=== PATIENT | female | born 1990 | race Caucasian/White ===

== ENCOUNTER → 2016-03-23 | Outpatient (REF) | payer BC | LOC: M LAB REF 16:24 | PROVIDERS: ATTEND Physician Assistant | DX: J02.9 Acute pharyngitis, unspecified (principal) ==

== ENCOUNTER → 2016-04-05 | Outpatient (REF) | payer BC ==
[2016-04-05 10:10] LABS: BASO % 0.3 % (0.0-1.0); EOS # 0.2 K/mm3 (0.0-0.50); EOS % 1.5 % (0.0-3.0); LARGE UNSTAINED CELL # 0.2 K/mm3 (0.0-0.4); LARGE UNSTAINED CELL % 1.6 % (0.0-4.0); LYMPH # 3.6 K/mm3 (1.5-6.5); MEAN CORPUSCULAR HEMOGLOBIN 30.8 pg (27.0-33.0); MEAN CORPUSCULAR HGB CONC 35.1 g/dl (32.0-36.5); MEAN CORPUSCULAR VOLUME 87.9 fl (80.0-96.0); MONO # 0.4 K/mm3 (0.0-0.8); MONO % 4.1 % (0.0-5.0); NEUTROPHILS # 5.2 K/mm3 (1.8-7.7); NEUTROPHILS % 54.4 % (36.0-66.0); PLATELET COUNT, AUTOMATED 307 k/mm3 (150-450); RED CELL DISTRIBUTION WIDTH 11.7 % (11.5-14.5); WHITE BLOOD COUNT 9.6 K/mm3 (4.0-10.0)
[2016-04-05 11:35] LABS: ALBUMIN 3.4 GM/DL (3.2-5.2); ALBUMIN/GLOBULIN RATIO 0.94 (1.00-1.93); ALKALINE PHOSPHATASE 73 U/L (45-117); ALT/SGPT 18 U/L (12-78); AMYLASE 40 U/L (25-115); ANION GAP 9 MEQ/L (8-16); AST/SGOT 14 U/L (15-37); BILIRUBIN,TOTAL 0.4 MG/DL (0.2-1.0); BLOOD UREA NITROGEN 10 MG/DL (7-18); CALCIUM LEVEL 8.7 MG/DL (8.5-10.1); CARBON DIOXIDE LEVEL 25 MEQ/L (21-32); CHLORIDE LEVEL 108 MEQ/L (98-107); CHOLESTEROL LEVEL 248 MG/DL (<200); CREATININE FOR GFR 0.83 MG/DL (0.55-1.02); GLOMERULAR FILTRATION RATE > 60.0 (>60); GLUCOSE, FASTING 80 MG/DL (70-105); POTASSIUM SERUM 4.4 MEQ/L (3.5-5.1); SODIUM LEVEL 142 MEQ/L (136-145); TRIGLYCERIDES LEVEL 166 MG/DL (<150)
== END ==
LOC: M SFHCPLAZ 07:51
PROVIDERS: ATTEND Physician Assistant
DX: R10.11 Right upper quadrant pain (principal); E78.5 Hyperlipidemia, unspecified

== ENCOUNTER → 2016-04-09 | Outpatient (CLI) | payer BC ==
--- NOTE | 2016-04-09 10:00 | REP ---
RIGHT UPPER QUADRANT ULTRASOUND: Real-time sonographic evaluation of the right upper quadrant performed. Multiple gallstones are seen in the gallbladder. There is no gallbladder wall thickening or pericholecystic fluid. There is no intrahepatic or extrahepatic biliary dilatation, common bile duct measuring 6 mm in diameter. Liver and pancreas demonstrate no gross mass. Pancreas is not optimally seen in the region of the pancreatic tail due to overlying bowel gas. Right kidney demonstrates nor hydronephrosis or nephrolithiasis with normal size at 10.4 cm in length. IMPRESSION: Multiple gallstones in the gallbladder. No gallbladder wall thickening, pericholecystic fluid or biliary dilatation. Signed by Guille Xiao MD 04/09/2016 01:12 P
== END ==
LOC: M RAD 07:45
PROVIDERS: ATTEND Physician Assistant
DX: R10.11 Right upper quadrant pain (principal)

== ENCOUNTER 2016-04-30 14:49 | Day surgery (SDC) | payer BC ==
[~2016-04-30] VITALS: Ht 167.6 cm; Wt 88.9 kg
[~2016-04-30 14:49] MED LIST: NUVAMIS2 VA
[2016-04-30] MEDS ORDERED: LR 1,000 ML IV SCH ×2 (15:30→22:30)
[2016-04-30] MEDS ORDERED: ONDANSETRON 4MG/2ML VIAL (J2405) As Ordered ONE ×2 (17:05→21:49)
[2016-04-30] MEDS ORDERED: LIDOCAINE 2% INJ 100 MG/5 ML SDV (FOR ANES.) As Ordered ONE (17:06)
[2016-04-30] MEDS ORDERED: fentaNYL 250 MCG/5 ML INJECTION (J3010) As Ordered ONE (17:06)
[2016-04-30] MEDS ORDERED: ROCURONIUM BROMIDE 50 MG/5 ML VIAL As Ordered ONE (17:06)
[2016-04-30] MEDS ORDERED: MIDAZOLAM INJ 2 MG/2 ML VIAL (J2250) As Ordered ONE (17:06)
[2016-04-30] MEDS ORDERED: dexameTHASONE 4 MG/ML 1ML VIAL (J1100) As Ordered ONE (17:06)
[2016-04-30] MEDS ORDERED: PROPOFOL 200 MG/20 ML VIAL As Ordered ONE (17:06)
[2016-04-30 17:15] LABS: CONTROL LINE UCG INT CTR LINE PRESENT
[2016-04-30] MEDS ORDERED: BUPIVACAINE/EPIN 0.25% 30 ML VIAL As Ordered ONE (20:51)
[2016-04-30] MEDS ORDERED: SUGAMMADEX SODIUM 500 MG/5 ML VIAL (BRIDION) As Ordered ONE (21:33)
[2016-04-30] MEDS ORDERED: METOCLOPRAMIDE INJ 10MG/2ML VIAL (J2765) As Ordered ONE (21:49)
[2016-04-30] MEDS ORDERED: fentaNYL 100 MCG/2 ML INJECTION (J3010) As Ordered ONE (21:55)
[2016-04-30] MEDS: HYDROmorphone HCL 1 MG/ML SYRINGE (J1170) IV PRN ×5 (21:55→22:15)
[2016-04-30] MEDS ORDERED: HYDROmorphone HCL 1 MG/ML SYRINGE (J1170) As Ordered ONE (21:55)
[2016-04-30] MEDS: fentaNYL 100 MCG/2 ML INJECTION (J3010) IV PRN ×4 (22:20→22:35)
[2016-04-30] MEDS ORDERED: PROMETHAZINE INJ 25 MG/ML VIAL (J2550) IV PRN (22:30)
[2016-04-30] MEDS ORDERED: ONDANSETRON 4MG/2ML VIAL (J2405) IV PRN (22:30)
[2016-04-30] MEDS ORDERED: diphenhydrAMINE INJ 50MG/ML VIAL (J1200) IV PRN (22:30)
[2016-04-30] MEDS ORDERED: PERCOCET 5MG/325MG TAB PO PRN (22:30)
[2016-04-30] MEDS ORDERED: METOCLOPRAMIDE INJ 10MG/2ML VIAL (J2765) IV PRN (22:30)
[2016-04-30 23:30] VITALS: BP 148/80
[2016-05-01] VITALS: BP 132/76
[2016-05-01] MEDS: NORCO, ANEXSIA 5/325MG TABLET (HYDROcodone/ACETAMINOPHEN) PO PRN ×2 (00:33→08:41)
[2016-05-01 01:00] VITALS: BP 130/72
[2016-05-01 02:00] VITALS: BP 128/65
[2016-05-01 03:00] VITALS: BP 119/67
[2016-05-01 06:00] VITALS: BP 115/61
[2016-05-01 10:00] VITALS: BP 130/73
--- NOTE | 2016-05-02 14:52 | RO ---
DATE OF PROCEDURE: 04/30/2016 PREOPERATIVE DIAGNOSIS: Symptomatic cholelithiasis. POSTOPERATIVE DIAGNOSIS: Symptomatic cholelithiasis. PROCEDURE: Laparoscopic cholecystectomy. SURGEON: Dr. Guille Bui FILTER OPERATOR: Maribel Parry ANESTHESIA: General. ESTIMATED BLOOD LOSS: 5. COMPLICATIONS: None. INDICATIONS FOR PROCEDURE: The patient is a 25-year-old female who presents with right quadrant abdominal pain and found to have symptomatic cholelithiasis. Recommendation was to proceed with laparoscopic possible open cholecystectomy. Risks and benefits of the procedure not limited to, but including bleeding, infection, hernia formation, damage to surrounding structures, and need for further surgery were discussed in detail with the patient. Informed consent was obtained and the procedure was planned. PROCEDURE: The patient brought back to operating room one. After sufficient sedation the abdomen was sterilely prepped and draped. Next a time out was done confirm proper patient and proper procedure. Following that, a stab incision was made in left upper quadrant. The Veress needle was inserted and the abdomen was insufflated to 15 mmHg. Next a 10 mm infraumbilical incision was made and 10 mm OptiView port was used to gain access to the abdomen. Once abdomen was entered, the Veress needle site was examined. There were no signs of injury. A 5 mm port was placed subxiphoid and two 5 mm ports in the right upper quadrant. The fundus of the gallbladder was grasped and elevated up towards the right shoulder. The cystic duct and cystic artery were both dissected with blunt dissection until they were both clearly identified. They were both then doubly clipped and cut. The gallbladder was then removed from the gallbladder fossa using electrocautery and then brought out through the umbilical port site in a 10 mm EndoCatch bag. The abdomen was then desufflated. Skin incision closed with #4-0 Vicryl subcuticular sutures. The abdomen was cleaned and dried. Steri-Strips, 4x4 and tape were applied, thus ending the procedure.
== END 2016-05-01 11:30 | disposition home or self-care (01) ==
LOC: M SDC 14:49 → M MS5PR 23:25 → M SDC 05-01 11:30
PROVIDERS: ATTEND Surgery
DX: K80.18 Calculus of gallbladder with other cholecystitis without obstruction (principal); Z87.891 Personal history of nicotine dependence
CPT/HCPCS: 47562; 84703; 88304; 96374; 96375; 96376; J0690; J1100; J1170; J2250; J2405; J2765; J3010

== ENCOUNTER → 2016-06-18 | Outpatient (REF) | payer BC | LOC: M SFHCWAGY 08:36 | PROVIDERS: ATTEND Nurse Practitioner Women's Health | DX: R87.810 Cervical high risk human papillomavirus (HPV) DNA test positive (principal) ==

== ENCOUNTER → 2016-07-12 | Outpatient (REF) | payer BC | LOC: M SFHCWAGY 11:49 | PROVIDERS: ATTEND Nurse Practitioner Women's Health | DX: R87.612 Low grade squamous intraepithelial lesion on cytologic smear of cervix (LGSIL) (principal) ==

== ENCOUNTER → 2017-01-03 | Outpatient (REF) | payer BC | LOC: M SFHCLERA 19:59 | PROVIDERS: ATTEND Physician Assistant | DX: J02.9 Acute pharyngitis, unspecified (principal) ==

== ENCOUNTER → 2017-02-01 | Outpatient (REF) | payer BC | LOC: M SFHCLERA 10:52 | PROVIDERS: ATTEND Physician Assistant | DX: K52.9 Noninfective gastroenteritis and colitis, unspecified (principal); J11.1 Influenza due to unidentified influenza virus with other respiratory manifestations ==

== ENCOUNTER → 2017-02-02 | Outpatient (REF) | payer BC | LOC: M SFHCPLAZ 12:47 | PROVIDERS: ATTEND Nurse Practitioner Family | DX: J02.9 Acute pharyngitis, unspecified (principal) ==

== ENCOUNTER → 2017-04-10 | Outpatient (REF) | payer BC | LOC: M LAB REF 19:03 | DX: J02.9 Acute pharyngitis, unspecified (principal) ==

== ENCOUNTER → 2017-07-11 | Outpatient (REF) | payer BC | LOC: M SFHCLERA 15:07 | DX: J02.9 Acute pharyngitis, unspecified (principal) ==

== ENCOUNTER → 2017-07-19 | Outpatient (REF) | payer BC ==
[2017-07-19 14:21] LABS: HCG, SERUM QUANTITATIVE 15 MIU/ML
== END ==
LOC: M SFHCPLAZ 12:14
DX: Z71.1 Person with feared health complaint in whom no diagnosis is made (principal)
CPT/HCPCS: 84702

== ENCOUNTER 2017-08-01 11:54 | Emergency (ER) | payer BC ==
[2017-08-01 13:49] LABS: BASO % 0.3 % (0.0-1.0); EOS # 0.2 10^3/uL (0.0-0.50); EOS % 1.2 % (0.0-3.0); HEMATOCRIT 40.9 % (36.0-47.0); HEMOGLOBIN 14.2 g/dl (12.0-15.5); IMMATURE GRANULOCYTE % 0.2 % (0-3.0); LYMPH # 4.2 10^3/uL (1.5-6.5); LYMPH % 29.9 % (24.0-44.0); MEAN CORPUSCULAR HEMOGLOBIN 30.8 pg (27.0-33.0); MEAN CORPUSCULAR HGB CONC 34.7 g/dl (32.0-36.5); MEAN CORPUSCULAR VOLUME 88.7 fl (80.0-96.0); MONO # 0.7 10^3/uL (0.0-0.8); MONO % 5.2 % (0.0-5.0); NEUTROPHILS # 8.9 10^3/uL (1.8-7.7); NEUTROPHILS % 63.2 % (36.0-66.0); PLATELET COUNT, AUTOMATED 340 10^3/uL (150-450); RED BLOOD COUNT 4.61 10^6/uL (4.00-5.40); RED CELL DISTRIBUTION WIDTH 12.2 % (11.5-14.5); WHITE BLOOD COUNT 14.1 10^3/uL (4.0-10.0)
[2017-08-01 14:31] LABS: ANION GAP 9 MEQ/L (8-16); BLOOD UREA NITROGEN 10 MG/DL (7-18); CALCIUM LEVEL 8.2 MG/DL (8.5-10.1); CARBON DIOXIDE LEVEL 24 MEQ/L (21-32); CHLORIDE LEVEL 107 MEQ/L (98-107); CREATININE FOR GFR 0.65 MG/DL (0.55-1.30); GLOMERULAR FILTRATION RATE > 60.0 (>60); GLUCOSE, FASTING 75 MG/DL (70-100); HCG, SERUM QUANTITATIVE 7229 MIU/ML; POTASSIUM SERUM 3.8 MEQ/L (3.5-5.1); SODIUM LEVEL 140 MEQ/L (136-145)
== END 2017-08-01 14:55 | disposition home or self-care (01) ==
LOC: M ED 11:54
DX: R42 Dizziness and giddiness (principal); Z91.041 Radiographic dye allergy status; Z88.5 Allergy status to narcotic agent
CPT/HCPCS: 84702

== ENCOUNTER 2017-08-02 20:05 | Emergency (ER) | payer BC ==
[2017-08-02 22:00] LABS: KETONE, URINE AUTO RFX NEGATIVE (NEGATIVE); LEUKOCYTE ESTERASE UR AUTO RFX NEGATIVE (NEGATIVE); MUCUS, URINE RFX SMALL (NEGATIVE); NITRITE, URINE AUTO RFX NEGATIVE (NEGATIVE); RBC, URINE AUTO RFX 5 /HPF (0-3); SPECIFIC GRAVITY UR AUTO RFX 1.026 (1.002-1.035); SQUAM EPITHELIAL CELL UR AURFX 2 /HPF (0-6); WBC, URINE AUTO RFX 1 /HPF (0-3)
[2017-08-02 22:28] LABS: HCG, SERUM QUANTITATIVE 8708 MIU/ML
== END 2017-08-02 23:00 | disposition home or self-care (01) ==
LOC: M ED 20:05
DX: O20.0 Threatened abortion (principal); Z3A.01 Less than 8 weeks gestation of pregnancy; O99.619 Diseases of the digestive system complicating pregnancy, unspecified trimester; Z87.891 Personal history of nicotine dependence; O34.80 Maternal care for other abnormalities of pelvic organs, unspecified trimester; Z88.5 Allergy status to narcotic agent; Z91.041 Radiographic dye allergy status
CPT/HCPCS: 76801

== ENCOUNTER → 2017-08-04 | Outpatient (CLI) | payer BC ==
[2017-08-04 15:36] LABS: HCG, SERUM QUANTITATIVE 12109 MIU/ML
== END ==
LOC: M LAB 14:09
DX: O20.0 Threatened abortion (principal)

== ENCOUNTER → 2017-10-31 | Outpatient (CLI) | payer BC | LOC: M RAD 15:08 | DX: Z34.82 Encounter for supervision of other normal pregnancy, second trimester (principal); Z36.89 Encounter for other specified antenatal screening; Z3A.18 18 weeks gestation of pregnancy | CPT/HCPCS: 76811 ==

== ENCOUNTER 2017-11-10 10:32 | Emergency (ER) | payer BC, MEDICAID ==
[2017-11-10] MEDS: NS 1,000 ML IV (11:29)
[2017-11-10 11:32] LABS: BASO % 0.2 % (0.0-1.0); EOS % 0.2 % (0.0-3.0); HEMATOCRIT 37.6 % (36.0-47.0); HEMOGLOBIN 13.3 g/dl (12.0-15.5); IMMATURE GRANULOCYTE % 0.5 % (0-3.0); LYMPH # 1.6 10^3/uL (1.5-6.5); LYMPH % 14.7 % (24.0-44.0); MEAN CORPUSCULAR HEMOGLOBIN 31.4 pg (27.0-33.0); MEAN CORPUSCULAR HGB CONC 35.4 g/dl (32.0-36.5); MEAN CORPUSCULAR VOLUME 88.7 fl (80.0-96.0); MONO # 0.5 10^3/uL (0.0-0.8); MONO % 4.3 % (0.0-5.0); NEUTROPHILS # 8.6 10^3/uL (1.8-7.7); NEUTROPHILS % 80.1 % (36.0-66.0); PLATELET COUNT, AUTOMATED 232 10^3/uL (150-450); RED BLOOD COUNT 4.24 10^6/uL (4.00-5.40); RED CELL DISTRIBUTION WIDTH 12.3 % (11.5-14.5); WHITE BLOOD COUNT 10.8 10^3/uL (4.0-10.0)
[2017-11-10 12:01] LABS: ALBUMIN 2.9 GM/DL (3.2-5.2); ALBUMIN/GLOBULIN RATIO 0.64 (1.00-1.93); ALKALINE PHOSPHATASE 90 U/L (45-117); ALT/SGPT 15 U/L (12-78); ANION GAP 10 MEQ/L (8-16); AST/SGOT 20 U/L (7-37); BILIRUBIN,DIRECT 0.1 MG/DL (0.0-0.2); BILIRUBIN,TOTAL 0.4 MG/DL (0.2-1.0); BLOOD UREA NITROGEN 6 MG/DL (7-18); CALCIUM LEVEL 8.4 MG/DL (8.5-10.1); CARBON DIOXIDE LEVEL 24 MEQ/L (21-32); CHLORIDE LEVEL 104 MEQ/L (98-107); CREATININE FOR GFR 0.61 MG/DL (0.55-1.30); GLOMERULAR FILTRATION RATE > 60.0 (>60); GLUCOSE, FASTING 86 MG/DL (70-100); POTASSIUM SERUM 3.6 MEQ/L (3.5-5.1); SODIUM LEVEL 138 MEQ/L (136-145); TOTAL PROTEIN 7.4 GM/DL (6.4-8.2)
[2017-11-10 12:51] LABS: KETONE, URINE AUTO RFX 1+ mg/dL (NEGATIVE); LEUKOCYTE ESTERASE UR AUTO RFX NEGATIVE (NEGATIVE); MUCUS, URINE RFX SMALL (NEGATIVE); NITRITE, URINE AUTO RFX NEGATIVE (NEGATIVE); RBC, URINE AUTO RFX 0 /HPF (0-3); SPECIFIC GRAVITY UR AUTO RFX 1.006 (1.002-1.035); SQUAM EPITHELIAL CELL UR AURFX 1 /HPF (0-6); WBC, URINE AUTO RFX 0 /HPF (0-3)
== END 2017-11-10 13:44 | disposition home or self-care (01) ==
LOC: M ED 10:32
DX: O99.89 Other specified diseases and conditions complicating pregnancy, childbirth and the puerperium (principal); A09 Infectious gastroenteritis and colitis, unspecified; Z3A.20 20 weeks gestation of pregnancy; O99.612 Diseases of the digestive system complicating pregnancy, second trimester; K21.9 Gastro-esophageal reflux disease without esophagitis; Z79.899 Other long term (current) drug therapy; Z88.5 Allergy status to narcotic agent; Z91.041 Radiographic dye allergy status
CPT/HCPCS: 80076

== ENCOUNTER → 2017-11-10 | Outpatient (REF) | payer BC, MEDICAID | LOC: M LAB REF 11-11 11:59 | DX: K52.9 Noninfective gastroenteritis and colitis, unspecified (principal) | CPT/HCPCS: 87507 ==

== ENCOUNTER 2017-11-17 10:04 | Emergency (ER) | payer BC, MEDICAID ==
[2017-11-17] MEDS: NS 1,000 ML IV (11:05)
[2017-11-17 11:16] LABS: BASO % 0.2 % (0.0-1.0); EOS # 0.1 10^3/uL (0.0-0.50); EOS % 1.2 % (0.0-3.0); HEMATOCRIT 35.9 % (36.0-47.0); HEMOGLOBIN 12.5 g/dl (12.0-15.5); IMMATURE GRANULOCYTE % 0.6 % (0-3.0); LYMPH % 26.7 % (24.0-44.0); MEAN CORPUSCULAR HEMOGLOBIN 31.3 pg (27.0-33.0); MEAN CORPUSCULAR HGB CONC 34.8 g/dl (32.0-36.5); MEAN CORPUSCULAR VOLUME 89.8 fl (80.0-96.0); MONO # 0.6 10^3/uL (0.0-0.8); MONO % 5.4 % (0.0-5.0); NEUTROPHILS # 7.5 10^3/uL (1.8-7.7); NEUTROPHILS % 65.9 % (36.0-66.0); PLATELET COUNT, AUTOMATED 266 10^3/uL (150-450); RED CELL DISTRIBUTION WIDTH 12.4 % (11.5-14.5); WHITE BLOOD COUNT 11.3 10^3/uL (4.0-10.0)
[2017-11-17 11:35] LABS: LACTIC ACID SEPSIS PROTOCOL 1.7 MMOL/L (0.4-2.0)
[2017-11-17 11:39] LABS: ALBUMIN 2.7 GM/DL (3.2-5.2); ALBUMIN/GLOBULIN RATIO 0.68 (1.00-1.93); ALKALINE PHOSPHATASE 92 U/L (45-117); ALT/SGPT 17 U/L (12-78); ANION GAP 10 MEQ/L (8-16); AST/SGOT 17 U/L (7-37); BILIRUBIN,DIRECT 0.1 MG/DL (0.0-0.2); BILIRUBIN,TOTAL 0.4 MG/DL (0.2-1.0); BLOOD UREA NITROGEN 6 MG/DL (7-18); CALCIUM LEVEL 8.4 MG/DL (8.5-10.1); CARBON DIOXIDE LEVEL 24 MEQ/L (21-32); CHLORIDE LEVEL 106 MEQ/L (98-107); CREATININE FOR GFR 0.52 MG/DL (0.55-1.30); GLOMERULAR FILTRATION RATE > 60.0 (>60); GLUCOSE, FASTING 69 MG/DL (70-100); LIPASE 159 U/L (73-393); POTASSIUM SERUM 3.7 MEQ/L (3.5-5.1); SODIUM LEVEL 140 MEQ/L (136-145); TOTAL PROTEIN 6.7 GM/DL (6.4-8.2)
[2017-11-17 12:59] LABS: KETONE, URINE AUTO RFX 1+ mg/dL (NEGATIVE); LEUKOCYTE ESTERASE UR AUTO RFX NEGATIVE (NEGATIVE); MUCUS, URINE RFX SMALL (NEGATIVE); NITRITE, URINE AUTO RFX NEGATIVE (NEGATIVE); RBC, URINE AUTO RFX 2 /HPF (0-3); SPECIFIC GRAVITY UR AUTO RFX 1.017 (1.002-1.035); SQUAM EPITHELIAL CELL UR AURFX 2 /HPF (0-6); WBC, URINE AUTO RFX 1 /HPF (0-3)
== END 2017-11-17 13:32 | disposition home or self-care (01) ==
LOC: M ED 10:04
DX: O99.89 Other specified diseases and conditions complicating pregnancy, childbirth and the puerperium (principal); R10.9 Unspecified abdominal pain; R11.2 Nausea with vomiting, unspecified; R19.7 Diarrhea, unspecified; B96.7 Clostridium perfringens [C. perfringens] as the cause of diseases classified elsewhere; Z3A.21 21 weeks gestation of pregnancy; K21.9 Gastro-esophageal reflux disease without esophagitis; Z88.5 Allergy status to narcotic agent; Z91.041 Radiographic dye allergy status
CPT/HCPCS: 83690

== ENCOUNTER → 2017-12-23 | Outpatient (CLI) | payer BC, MEDICAID ==
[2017-12-23 13:46] LABS: BASO % 0.2 % (0.0-1.0); EOS # 0.1 10^3/uL (0.0-0.50); EOS % 0.8 % (0.0-3.0); HEMATOCRIT 35.9 % (36.0-47.0); HEMOGLOBIN 11.9 g/dl (12.0-15.5); IMMATURE GRANULOCYTE % 0.9 % (0-3.0); LYMPH # 2.8 10^3/uL (1.5-6.5); LYMPH % 19.2 % (24.0-44.0); MEAN CORPUSCULAR HEMOGLOBIN 30.7 pg (27.0-33.0); MEAN CORPUSCULAR HGB CONC 33.1 g/dl (32.0-36.5); MEAN CORPUSCULAR VOLUME 92.8 fl (80.0-96.0); MONO # 0.6 10^3/uL (0.0-0.8); MONO % 4.3 % (0.0-5.0); NEUTROPHILS # 10.8 10^3/uL (1.8-7.7); NEUTROPHILS % 74.6 % (36.0-66.0); PLATELET COUNT, AUTOMATED 287 10^3/uL (150-450); RED BLOOD COUNT 3.87 10^6/uL (4.00-5.40); RED CELL DISTRIBUTION WIDTH 12.6 % (11.5-14.5); WHITE BLOOD COUNT 14.5 10^3/uL (4.0-10.0)
[2017-12-23 13:58] LABS: GLUCOSE CHALLENGE TEST 1 HOUR 127 MG/DL (LESS THAN 140)
== END ==
LOC: M SMT 08:36
DX: Z36.89 Encounter for other specified antenatal screening (principal)
CPT/HCPCS: 82950

== ENCOUNTER → 2017-12-29 | Outpatient (CLI) | payer BC, MEDICAID | LOC: M RAD 15:05 | DX: Z3A.00 Weeks of gestation of pregnancy not specified (principal); O32.1XX1 Maternal care for breech presentation, fetus 1 | CPT/HCPCS: 76817 ==

== ENCOUNTER → 2018-01-29 | Outpatient (REF) | payer BC, MEDICAID | LOC: M SFHCLERA 12:26 | DX: R53.81 Other malaise (principal) ==

== ENCOUNTER → 2018-03-03 | Outpatient (REF) | payer BC, MEDICAID ==
[~2018-03-03] MED LIST changes: +FLAG500T PO; +IMOD2CAP PO; +PRENATAL; +RANI1TAB6 PO; +REGL10TA6 PO
== END ==
LOC: M LAB REF 12:57
PROVIDERS: ATTEND Advanced Practice Midwife
DX: Z34.83 Encounter for supervision of other normal pregnancy, third trimester (principal)

== ENCOUNTER 2018-03-26 04:54 | Inpatient (IN) | payer BC, MEDICAID ==
[~2018-03-26] VITALS: Ht 167.6 cm; Wt 106.7 kg
[~2018-03-26 04:54] MED LIST changes: -PRENATAL; +PRENATAL PO
[2018-03-26 05:11] VITALS: BP 144/92
[2018-03-26] MEDS ORDERED: APAP500T10 PO (05:16)
[2018-03-26] MEDS ORDERED: ACET-683 PO (05:16)
[2018-03-26 05:18] VITALS: BP 149/90
[2018-03-26 05:20] VITALS: BP 135/68
[2018-03-26] MEDS ORDERED: OXYTOCIN DRIP 30 UNITS in APPROPRIATE DILUENT 1 EA IV SCH ×2 (06:00→16:00)
[2018-03-26 06:18] VITALS: BP 119/80
[2018-03-26] MEDS: LR 1,000 ML IV SCH ×2 (06:28→10:26)
[2018-03-26 06:30] LABS: HEMATOCRIT 33.3 % (36.0-47.0); HEMOGLOBIN 11.2 g/dl (12.0-15.5); MEAN CORPUSCULAR HEMOGLOBIN 28.6 pg (27.0-33.0); MEAN CORPUSCULAR HGB CONC 33.6 g/dl (32.0-36.5); MEAN CORPUSCULAR VOLUME 84.9 fl (80.0-96.0); PLATELET COUNT, AUTOMATED 321 10^3/uL (150-450); RED BLOOD COUNT 3.92 10^6/uL (4.00-5.40); WHITE BLOOD COUNT 15.8 10^3/uL (4.0-10.0)
[2018-03-26 06:57] LABS: AMPHETAMINES URINE REFLEX NEGATIVE (NEGATIVE); BARBITURATES URINE REFLEX NEGATIVE (NEGATIVE); BENZODIAZEPINES URINE REFLEX NEGATIVE (NEGATIVE); CANNABINOIDS URINE REFLEX NEGATIVE (NEGATIVE); COCAINE METABOLITE URINE REFLE NEGATIVE (NEGATIVE); METHADONE URINE REFLEX NEGATIVE (NEGATIVE); OPIATES URINE REFLEX NEGATIVE (NEGATIVE); PHENCYCLIDINE URINE REFLEX NEGATIVE (NEGATIVE)
--- NOTE | 2018-03-26 08:33 | HPE ---
DATE OF ADMISSION: 03/26/2018 REASON FOR ADMISSION: Spontaneous rupture of membranes. HISTORY OF PRESENT ILLNESS: Ms. Honeycutt is a 27-year-old, 1, who presents at 39 weeks 4 days estimated gestational age by her last menstrual period, confirmed by a first trimester ultrasound, with complaints of leakage of clear fluid approximately at 3:30 a.m. this morning. She reports a large gush and she reports active movement. She denies any vaginal bleeding or regular pattern of contractions. Her course has been unremarkable. She initiated care in the first trimester and has been appropriate throughout. PAST MEDICAL HISTORY: None. PAST SURGICAL HISTORY: 1. She has had a cholecystectomy. 2. Loop electrosurgical excision procedure (LEEP). PAST OBSTETRICAL HISTORY: She is a 1. MEDICATIONS: Include: - vitamins - Sudafed ALLERGIES to GADOLINIUM. SOCIAL HISTORY: Denies any alcohol, tobacco, or drug use during her . PHYSICAL EXAMINATION: Vital signs: Stable. She is afebrile. She has a category 1 rate tracing. General appearance: Well-appearing, no acute distress. Her lungs are clear to auscultation bilaterally. Cardiovascular: Heart regular rate and rhythm. Her abdomen is gravid and nontender. Estimated weight (EFW) 3600 grams. Cervical exam: She was 3 cm dilated, 50% effaced, grossly ruptured. LABS: Her blood type is A positive. Antibody screen is negative. Rubella is immune. RPR is nonreactive. Chlamydia and gonorrhea screens are negative. Hepatitis surface antigen is negative. HIV is negative. Hepatitis C is nonreactive. She had a normal 1-hour Glucola. She is group B Streptococcus (GBS) negative. ASSESSMENT: 1. Ms. Honeycutt is a 27-year-old, 1, at 39 weeks 4 days estimated gestational age by her last menstrual period confirmed by first trimester ultrasound with rupture of membranes. 2. Reassuring status. PLAN: 1. Admit to labor and delivery. Complete blood count (CBC), rapid plasma reagin (RPR), type and screen. 2. I have discussed the patient's diagnosis. I have discussed medication, as well as procedures performed in labor and delivery. We specifically talked about augmentation of her labor with pitocin. She has also been verbally consented for emergency surgery, blood products, anesthesia and desires to proceed with admission. 3. We will initiate pitocin augmentation of her labor.
[2018-03-26] MEDS ORDERED: FENTANYL 2MCG/ML ROPIVACAINE 0.2% IN 0.9% NACL 100ML IVBAG As Ordered ONE (10:15)
[2018-03-26] MEDS ORDERED: EPIDURAL/PCA KEYS XX PRN (11:15)
[2018-03-26] MEDS ORDERED: diphenhydrAMINE INJ 50MG/ML VIAL (J1200) IV PRN (11:15)
[2018-03-26] MEDS ORDERED: REFRIGERATOR IV KEYS XX PRN (11:15)
[2018-03-26] MEDS ORDERED: ePHEDrine SULFATE 25 MG/5 ML(5MG/ML) SYRINGE IV PRN (11:15)
[2018-03-26] MEDS ORDERED: EPIDURAL COMMENT XX SCH (11:15)
[2018-03-26] MEDS ORDERED: FENTANYL/ROPIVACAINE/NACL BAG 100 ML EPIDURAL SCH (11:15)
[2018-03-26] MEDS ORDERED: ONDANSETRON 4MG/2ML VIAL (J2405) IV PRN ×2 (11:15→15:45)
[2018-03-26] MEDS ORDERED: NALOXONE INJ 0.4 MG/1 ML VIAL (J2310) IV PRN (11:15)
[2018-03-26] MEDS ORDERED: LACTATED RINGER'S 1000 ML IV PRN (11:15)
[2018-03-26] MEDS ORDERED: FAMOTIDINE 20 MG TAB PO ONE (13:00)
[2018-03-26] MEDS ORDERED: PILL CRUSHER/CUTTER 1 EACH XX PRN (13:15)
[2018-03-26] MEDS ORDERED: DOCUSATE SODIUM 100 MG CAP PO PRN (15:45)
[2018-03-26] MEDS ORDERED: MEASLES,MUMPS,RUBELLA VACCINE INJ (MMR-II) (90707) SC SCH (15:45)
[2018-03-26] MEDS ORDERED: DIBUCAINE 1% OINTMENT 30GM TOP PRN (15:45)
[2018-03-26] MEDS ORDERED: RHOGAM 300 MCG (1500 IU) INJ (J2790) IM SCH (15:45)
[2018-03-26] MEDS ORDERED: METHYLERGONOVINE MALEATE 0.2 MG TAB PO PRN (15:45)
[2018-03-26] MEDS ORDERED: ANUSOL HC CREAM 30GM TOP PRN (15:45)
[2018-03-26] MEDS ORDERED: MOM 30ML SUSPENSION UDC PO PRN (15:45)
[2018-03-26] MEDS: IBUPROFEN 800 MG TAB PO PRN (16:01)
[2018-03-26 16:20] VITALS: BP 130/73
[2018-03-26 18:00] VITALS: BP 129/68
[2018-03-26] MEDS: ACETAMINOPHEN 500 MG TAB PO PRN (20:31)
[2018-03-27] MEDS: IBUPROFEN 800 MG TAB PO PRN ×3 (05:11→20:37)
[2018-03-27 05:51] VITALS: BP 105/64
--- NOTE | 2018-03-27 06:40 | DN ---
DATE OF DELIVERY: 03/26/2018 TIME OF : 1429 GENDER: Female APGARS: 8 and 9 WEIGHT: 7 pounds and 9 ounces or 3440 grams ANESTHESIA: Epidural. LACERATION: Second degree midline laceration and left labial laceration. ESTIMATED BLOOD LOSS: 300 mL. COUNTS: 5 laparotomy sponges accounted for prior to and after delivery. One sharp removed from delivery field. DELIVERY NOTE: On 03/26/2018, at 1429, Ms. Honeycutt, a 27-year-old, 1, now para 1, had a spontaneous delivery of a live born female , Apgars 8 and 9, weight 7 pounds and 9 ounces or 3440 grams. Head was delivered occiput anterior (OA) followed by delivery of shoulders and corpus. Cord was clamped times two and was cut by the father of the baby under my direction. Infant was handed to mom with a good cry. Cord blood was obtained. Placenta was then drained and delivered grossly intact. A premixed bag of 500 mL of normal saline with 30 units of Pitocin was bolused along with uterine massage until the uterus was firm. On inspection, there was a second degree midline laceration which was repaired with #3-0 Vicryl Rapide along with the repair of a left labial laceration. On reinspection, cervix, vagina and perineum grossly intact and hemostatic. Mom and baby to recovery in stable condition.
[2018-03-27] MEDS: PRENATAL VITAMINS CHEWABLE TABLET PO SCH (07:12)
[2018-03-27] MEDS: ACETAMINOPHEN 500 MG TAB PO PRN ×2 (07:13→15:20)
--- NOTE | 2018-03-27 07:44 | NUR ---
PPD#1 S: Doing well w/o complaints. Decreasing lochia, pain well control, + voids and + BF. O: vss, AF Gen: well appearing abd: soft, nttp with ff@[id number] A/P: PPD#1 s/p - stable -continue routine care -d/c plans for tomorrow Naomie Kennedy MD
[2018-03-27 18:21] VITALS: BP 117/70
[2018-03-28] MEDS: ACETAMINOPHEN 500 MG TAB PO PRN (00:56)
[2018-03-28] MEDS: IBUPROFEN 800 MG TAB PO PRN (05:56)
[2018-03-28 06:04] VITALS: BP 121/56
[2018-03-28] MEDS: PRENATAL VITAMINS CHEWABLE TABLET PO SCH (07:54)
[2018-03-28] MEDS ORDERED: IBUP-1114 PO (09:44)
== END 2018-03-28 11:55 | disposition home or self-care (01) | DRG 560 ==
LOC: M LDO 04:54 → M LDI 05:57 → M OBS 16:16
PROVIDERS: ADMIT Obstetrics & Gynecology; ATTEND Obstetrics & Gynecology
PROC: 10E0XZZ Delivery of Products of Conception, External Approach (ICD-10-PCS; principal; 2018-03-26)
PROC: 0KQM0ZZ Repair Perineum Muscle, Open Approach (ICD-10-PCS; 2018-03-26)
PROC: 0HQ9XZZ Repair Perineum Skin, External Approach (ICD-10-PCS; 2018-03-26)
DX: O70.1 Second degree perineal laceration during delivery (principal); O70.0 First degree perineal laceration during delivery; Z37.0 Single live birth; Z3A.39 39 weeks gestation of pregnancy

== ENCOUNTER → 2018-08-18 | Outpatient (REF) | payer BC, MEDICAID ==
[~2018-08-18] MED LIST changes: +ACET-683 PO; +APAP500T10 PO; +IBUP-1114 PO
== END ==
LOC: M LAB REF 17:27
PROVIDERS: ATTEND Obstetrics & Gynecology
DX: Z12.4 Encounter for screening for malignant neoplasm of cervix (principal)

== ENCOUNTER → 2019-10-02 | Outpatient (REF) | payer OTHER, MEDICAID ==
[~2019-10-02] MED LIST changes: +RANI-397 PO; -RANI1TAB6 PO
== END ==
LOC: M SFHCLERA 10:44
PROVIDERS: ATTEND Physician Assistant
DX: J02.0 Streptococcal pharyngitis (principal)

== ENCOUNTER → 2020-08-04 | Outpatient (CLI) | payer OTHER, MEDICAID ==
[2020-08-04 10:58] LABS: BASO % 0.4 % (0.0-1.0); EOS # 0.2 10^3/uL (0.0-0.5); EOS % 1.5 % (0.0-3.0); HEMATOCRIT 43.9 % (36.0-47.0); HEMOGLOBIN 14.6 g/dl (12.0-15.5); LYMPH # 3.8 10^3/uL (1.5-5.0); LYMPH % 38.1 % (24.0-44.0); MEAN CORPUSCULAR HEMOGLOBIN 30.2 pg (27.0-33.0); MEAN CORPUSCULAR HGB CONC 33.3 g/dl (32.0-36.5); MEAN CORPUSCULAR VOLUME 90.9 fl (80.0-96.0); MONO # 0.6 10^3/uL (0.0-0.8); MONO % 6.3 % (2.0-8.0); NEUTROPHILS # 5.4 10^3/uL (1.5-8.5); NEUTROPHILS % 53.4 % (36.0-66.0); PLATELET COUNT, AUTOMATED 328 10^3/uL (150-450); RED BLOOD COUNT 4.83 10^6/uL (4.00-5.40); WHITE BLOOD COUNT 10.1 10^3/uL (4.0-10.0)
[2020-08-04 11:28] LABS: HEMOGLOBIN A1c 4.5 %
[2020-08-04 11:35] LABS: ALBUMIN 3.4 GM/DL (3.2-5.2); ALT/SGPT 12 U/L (12-78); BILIRUBIN,TOTAL 0.4 MG/DL (0.2-1.0); BLOOD UREA NITROGEN 9 MG/DL (7-18); CALCIUM LEVEL 8.6 MG/DL (8.5-10.1); CARBON DIOXIDE LEVEL 26 MEQ/L (21-32); CHLORIDE LEVEL 110 MEQ/L (98-107); CHOLESTEROL LEVEL 223 MG/DL (<200); CHOLESTEROL RISK RATIO 5.068 (<5); CREATININE FOR GFR 0.74 MG/DL (0.55-1.30); FREE T4 0.92 NG/DL (0.76-1.46); GLOMERULAR FILTRATION RATE > 60.0 (>60); GLUCOSE, FASTING 90 MG/DL (70-100); HDL CHOLESTEROL 44 MG/DL (>40); LDL CHOLESTEROL 138 MG/DL (<100); NON-HDL-C 179 MG/DL; POTASSIUM SERUM 4.4 MEQ/L (3.5-5.1); SODIUM LEVEL 141 MEQ/L (136-145); TOTAL PROTEIN 6.5 GM/DL (6.4-8.2); TRIGLYCERIDES LEVEL 204 MG/DL (<150)
== END ==
LOC: M WUC 08:15
PROVIDERS: ATTEND Nurse Practitioner Family
DX: R10.9 Unspecified abdominal pain (principal); Z13.228 Encounter for screening for other metabolic disorders; E78.5 Hyperlipidemia, unspecified

== ENCOUNTER → 2021-01-06 | Outpatient (REF) | payer OTHER, MEDICAID | LOC: M SFHCWAGY 13:14 | PROVIDERS: ATTEND Nurse Practitioner Women's Health | DX: Z12.4 Encounter for screening for malignant neoplasm of cervix (principal) ==

== ENCOUNTER → 2021-06-29 | Outpatient (CLI) | payer OTHER ==
[2021-06-29 14:06] LABS: ESTRADIOL 75.6 PG/ML; FOLLICLE STIMULATING HORMONE 5.4 mIU/mL; LUTEINIZING HORMONE 10.7 mIU/mL; THYROID STIMULATING HORMONE 2.21 uIU/ML (0.358-3.740)
[2021-06-29 14:35] LABS: HEMOGLOBIN A1c 4.6 %
== END ==
LOC: M PLALAB 09:44
PROVIDERS: ATTEND Obstetrics & Gynecology
DX: N91.2 Amenorrhea, unspecified (principal)

== ENCOUNTER → 2021-06-29 | Outpatient (CLI) | payer OTHER | LOC: M WHC 08:52 | PROVIDERS: ATTEND Obstetrics & Gynecology | DX: N97.9 Female infertility, unspecified (principal) ==

== ENCOUNTER → 2022-07-26 | Outpatient (CLI) | payer OTHER ==
[~2022-07-26] MED LIST changes: +ETON1VAG7 VA; -NUVAMIS2 VA
[2022-07-26 10:05] LABS: HEMATOCRIT 43.4 % (36.0-47.0); HEMOGLOBIN 14.6 g/dl (12.0-15.5); MEAN CORPUSCULAR HEMOGLOBIN 29.7 pg (27.0-33.0); MEAN CORPUSCULAR HGB CONC 33.6 g/dl (32.0-36.5); MEAN CORPUSCULAR VOLUME 88.2 fl (80.0-96.0); PLATELET COUNT, AUTOMATED 353 10^3/uL (150-450); RED BLOOD COUNT 4.92 10^6/uL (4.00-5.40)
[2022-07-26 10:35] LABS: ALBUMIN 3.5 G/DL (3.2-5.2); ALKALINE PHOSPHATASE 59 U/L (46-116); ALT/SGPT < 9 U/L (7.0-40); AST/SGOT < 8 U/L (<34); BILIRUBIN,TOTAL 0.5 MG/DL (0.3-1.2); BLOOD UREA NITROGEN 10 MG/DL (9-23); CALCIUM LEVEL 8.8 MG/DL (8.5-10.1); CARBON DIOXIDE LEVEL 23 MMOL/L (20-31); CHLORIDE LEVEL 107 MMOL/L (98-107); CREATININE FOR GFR 0.64 MG/DL (0.55-1.30); GLOMERULAR FILTRATION RATE > 60.0 (>60); GLUCOSE, FASTING 87 MG/DL (60-100); POTASSIUM SERUM 4.6 MMOL/L (3.5-5.1); SODIUM LEVEL 137 MMOL/L (136-145); TOTAL PROTEIN 6.4 G/DL (5.7-8.2)
== END ==
LOC: M LAB 09:39
PROVIDERS: ATTEND Obstetrics & Gynecology
DX: O09.299 Supervision of pregnancy with other poor reproductive or obstetric history, unspecified trimester (principal)

== ENCOUNTER → 2022-07-28 | Outpatient (CLI) | payer OTHER | LOC: M LAB 09:01 | PROVIDERS: ATTEND Obstetrics & Gynecology | DX: O09.299 Supervision of pregnancy with other poor reproductive or obstetric history, unspecified trimester (principal) ==

== ENCOUNTER → 2022-09-15 | Outpatient (CLI) | payer OTHER, MEDICAID | LOC: M LAB 11:56 | PROVIDERS: ATTEND Nurse Practitioner Women's Health | DX: Z34.81 Encounter for supervision of other normal pregnancy, first trimester (principal) ==

== ENCOUNTER → 2022-10-11 | Outpatient (REF) | payer OTHER, MEDICAID | LOC: M PLALAB 08:54 | PROVIDERS: ATTEND Obstetrics & Gynecology | DX: Z53.9 Procedure and treatment not carried out, unspecified reason (principal) ==

== ENCOUNTER → 2022-10-14 | Outpatient (CLI) | payer OTHER | LOC: M WHC 14:52 | PROVIDERS: ATTEND Obstetrics & Gynecology | DX: O34.40 Maternal care for other abnormalities of cervix, unspecified trimester (principal); Z3A.15 15 weeks gestation of pregnancy ==

== ENCOUNTER → 2022-10-25 | Outpatient (CLI) | payer OTHER ==
[2022-10-25 14:04] LABS: HEMATOCRIT 36.9 % (36.0-47.0); MEAN CORPUSCULAR HEMOGLOBIN 31.9 pg (27.0-33.0); MEAN CORPUSCULAR HGB CONC 35.2 g/dl (32.0-36.5); MEAN CORPUSCULAR VOLUME 90.7 fl (80.0-96.0); PLATELET COUNT, AUTOMATED 265 10^3/uL (150-450); RED BLOOD COUNT 4.07 10^6/uL (4.00-5.40); WHITE BLOOD COUNT 13.2 10^3/uL (4.0-10.0)
[2022-10-25 15:02] LABS: HIV 1&2 SCREEN NEGATIVE (NEGATIVE)
[2022-10-25 15:10] LABS: HEPATITIS C VIRUS ABY INDEX 0.14 INDEX (<0.8)
[2022-10-25 16:05] LABS: GC DNA AMPLIFICATION NEGATIVE (NEGATIVE)
== END ==
LOC: M PLALAB 09:00
PROVIDERS: ATTEND Obstetrics & Gynecology
DX: Z34.81 Encounter for supervision of other normal pregnancy, first trimester (principal)

== ENCOUNTER → 2022-11-08 | Outpatient (REF) | payer OTHER, MEDICAID | LOC: M SFHCWAGY 13:23 | PROVIDERS: ATTEND Obstetrics & Gynecology | DX: R82.90 Unspecified abnormal findings in urine (principal) ==

== ENCOUNTER → 2022-11-12 | Outpatient (CLI) | payer OTHER | LOC: M WHC 10:10 | PROVIDERS: ATTEND Obstetrics & Gynecology | DX: O34.40 Maternal care for other abnormalities of cervix, unspecified trimester (principal) ==

== ENCOUNTER → 2022-12-13 | Outpatient (CLI) | payer OTHER | LOC: M WHC 10:28 | PROVIDERS: ATTEND Specialist | DX: Z34.82 Encounter for supervision of other normal pregnancy, second trimester (principal); Z3A.23 23 weeks gestation of pregnancy ==

== ENCOUNTER → 2023-01-03 | Outpatient (CLI) | payer OTHER ==
[2023-01-03 15:05] LABS: HEMATOCRIT 36.6 % (36.0-47.0); HEMOGLOBIN 12.4 g/dl (12.0-15.5); MEAN CORPUSCULAR HEMOGLOBIN 31.2 pg (27.0-33.0); MEAN CORPUSCULAR HGB CONC 33.9 g/dl (32.0-36.5); MEAN CORPUSCULAR VOLUME 92.2 fl (80.0-96.0); PLATELET COUNT, AUTOMATED 278 10^3/uL (150-450); RED BLOOD COUNT 3.97 10^6/uL (4.00-5.40); WHITE BLOOD COUNT 15.6 10^3/uL (4.0-10.0)
== END ==
LOC: M PLALAB 10:20
PROVIDERS: ATTEND Specialist
DX: Z34.82 Encounter for supervision of other normal pregnancy, second trimester (principal)

== ENCOUNTER → 2023-01-14 | Outpatient (CLI) | payer OTHER | LOC: M WHC 10:09 | PROVIDERS: ATTEND Specialist | DX: Z36.2 Encounter for other antenatal screening follow-up (principal); Z3A.28 28 weeks gestation of pregnancy ==

== ENCOUNTER → 2023-02-18 | Outpatient (CLI) | payer OTHER | LOC: M WHC 07:46 | PROVIDERS: ATTEND Advanced Practice Midwife | DX: Z34.93 Encounter for supervision of normal pregnancy, unspecified, third trimester (principal) ==

== ENCOUNTER → 2023-03-08 | Outpatient (REF) | payer OTHER, MEDICAID | LOC: M PLALAB 14:29 | PROVIDERS: ATTEND Advanced Practice Midwife | DX: Z36.85 Encounter for antenatal screening for Streptococcus B (principal); O34.43 Maternal care for other abnormalities of cervix, third trimester ==

== ENCOUNTER 2023-04-07 07:40 | Inpatient (IN) | payer OTHER, MEDICAID ==
[~2023-04-07] VITALS: Ht 167.6 cm; Wt 109.5 kg
[2023-04-07] VITALS (36 sets, daily range): BP systolic 105–153; BP diastolic 54–91; O2SAT 96–100
[2023-04-07] MEDS ORDERED: LACTATED RINGER'S 1000 ML IV PRN (08:10)
[2023-04-07] MEDS ORDERED: OXYTOCIN DRIP 30 UNITS in IV 1 EA IV PRN ×4 (08:10)
[2023-04-07] MEDS ORDERED: CARBOPROST TROMETHAMINE 250 MCG/ML AMP IM PRN (08:10)
[2023-04-07] MEDS ORDERED: TRANEXAMIC ACID INJection 1,000 MG in NS 100 ML IV PRN (08:10)
[2023-04-07] MEDS ORDERED: METHYLERGONOVINE MALEATE 0.2MG/ML 1ML VIAL IM PRN (08:10)
[2023-04-07] MEDS ORDERED: TUMS500C PO (08:11)
[2023-04-07] MEDS ORDERED: HOME MED LIST COMPLETE! XX SCH (08:15)
[2023-04-07 08:58] LABS: HEMATOCRIT 36.2 % (36.0-47.0); HEMOGLOBIN 12.4 g/dl (12.0-15.5); MEAN CORPUSCULAR HEMOGLOBIN 30.6 pg (27.0-33.0); MEAN CORPUSCULAR HGB CONC 34.3 g/dl (32.0-36.5); MEAN CORPUSCULAR VOLUME 89.4 fl (80.0-96.0); PLATELET COUNT, AUTOMATED 321 10^3/uL (150-450); RED BLOOD COUNT 4.05 10^6/uL (4.00-5.40); WHITE BLOOD COUNT 13.1 10^3/uL (4.0-10.0)
[2023-04-07] MEDS ORDERED: miSOPROStol 50MCG 1/2 TABLET BUC ONE (10:15)
[2023-04-07 11:11] LABS: ALBUMIN 2.5 G/DL (3.2-5.2); ALKALINE PHOSPHATASE 158 U/L (46-116); ALT/SGPT < 9 U/L (7.0-40); AST/SGOT 8 U/L (<34); BILIRUBIN,TOTAL 0.3 MG/DL (0.3-1.2); BLOOD UREA NITROGEN 8 MG/DL (9-23); CARBON DIOXIDE LEVEL 19 MMOL/L (20-31); CHLORIDE LEVEL 108 MMOL/L (98-107); CREATININE FOR GFR 0.59 MG/DL (0.55-1.30); GLOMERULAR FILTRATION RATE > 60.0 (>60); GLUCOSE, FASTING 132 MG/DL (60-100); POTASSIUM SERUM 3.8 MMOL/L (3.5-5.1); SODIUM LEVEL 140 MMOL/L (136-145); TOTAL PROTEIN 5.7 G/DL (5.7-8.2)
[2023-04-07] MEDS ORDERED: CALCIUM CARBONATE 500 MG CHEW U/D PO PRN ×2 (12:00→19:45)
[2023-04-07] MEDS ORDERED: LR 1,000 ML IV SCH (13:05)
[2023-04-07] MEDS ORDERED: FENTANYL 2MCG/ML ROPIVACAINE 0.2% IN 0.9% NACL 100ML IVBAG As Ordered ONE (13:43)
[2023-04-07] MEDS ORDERED: EPIDURAL/PCA KEYS XX PRN (13:45)
[2023-04-07] MEDS ORDERED: NALOXONE INJ 0.4MG/1ML VIAL IV PRN (13:45)
[2023-04-07] MEDS ORDERED: diphenhydrAMINE 50MG/ML VIAL IV PRN (13:45)
[2023-04-07] MEDS ORDERED: ePHEDrine SULFATE 25 MG/5 ML(5MG/ML) SYRINGE IVP PRN (13:45)
[2023-04-07] MEDS ORDERED: LR 500 ML IV PRN (13:45)
[2023-04-07] MEDS ORDERED: ONDANSETRON 4MG 2ML VIAL IV PRN ×2 (13:45→16:30)
[2023-04-07] MEDS ORDERED: FENTANYL/ROPIVACAINE/NACL BAG 100 ML EPIDURAL SCH (13:45)
[2023-04-07] MEDS ORDERED: ACETAMINOPHEN 500 MG TAB PO PRN (16:30)
[2023-04-07] MEDS ORDERED: IBUPROFEN 600MG TAB PO PRN (16:30)
[2023-04-07] MEDS ORDERED: DOCUSATE SODIUM 100MG CAPSULE PO PRN (16:30)
[2023-04-07] MEDS ORDERED: ACETAMINOPHEN TAB 650MG DOSE (2X325MG) PO PRN (16:30)
[2023-04-07] MEDS ORDERED: METHYLERGONOVINE MALEATE 0.2 MG TAB PO PRN ×2 (16:30→17:05)
[2023-04-07] MEDS ORDERED: OXYTOCIN DRIP 30 UNITS in IV 1 EA IV SCH (16:30)
[2023-04-07] MEDS ORDERED: DIBUCAINE 1% OINTMENT 30GM TOP PRN ×2 (16:30→17:05)
[2023-04-07] MEDS ORDERED: IBUPROFEN 800 MG TAB PO PRN (16:30)
[2023-04-07] MEDS ORDERED: RHOGAM 300MCG (1500IU) INJ IM SCH (17:05)
[2023-04-07] MEDS: IBUPROFEN 600MG TAB PO PRN (17:45)
[2023-04-07] MEDS: ACETAMINOPHEN 500 MG TAB PO PRN (23:05)
[2023-04-08] MEDS: IBUPROFEN 600MG TAB PO PRN ×3 (01:20→23:27)
[2023-04-08] MEDS: ACETAMINOPHEN 500 MG TAB PO PRN ×3 (05:58→19:54)
[2023-04-08 06:31] LABS: HEMATOCRIT 31.7 % (36.0-47.0); HEMOGLOBIN 10.7 g/dl (12.0-15.5); MEAN CORPUSCULAR HEMOGLOBIN 30.5 pg (27.0-33.0); MEAN CORPUSCULAR HGB CONC 33.8 g/dl (32.0-36.5); MEAN CORPUSCULAR VOLUME 90.3 fl (80.0-96.0); PLATELET COUNT, AUTOMATED 268 10^3/uL (150-450); RED BLOOD COUNT 3.51 10^6/uL (4.00-5.40); WHITE BLOOD COUNT 18.4 10^3/uL (4.0-10.0)
[2023-04-08] MEDS: PRENATAL VITAMINS CHEWABLE TABLET PO SCH (07:48)
[2023-04-08] MEDS: DOCUSATE SODIUM 100MG CAPSULE PO PRN (07:55)
[2023-04-08] MEDS ORDERED: PRENATAL VITAMINS CHEWABLE TABLET PO SCH (09:00)
[2023-04-08 18:00] VITALS: BP 126/65; O2SAT 97
[2023-04-09 06:00] VITALS: BP 118/56; O2SAT 97
[2023-04-09] MEDS: DOCUSATE SODIUM 100MG CAPSULE PO PRN (07:37)
[2023-04-09] MEDS: PRENATAL VITAMINS CHEWABLE TABLET PO SCH (07:38)
[2023-04-09] MEDS: IBUPROFEN 600MG TAB PO PRN (07:38)
[2023-04-09] MEDS: ACETAMINOPHEN 500 MG TAB PO PRN (07:39)
[2023-04-09] MEDS ORDERED: MEASLES,MUMPS,RUBELLA VACCINE INJ (MMR-II) SC.IMMUN ONE (09:00)
[2023-04-09] MEDS ORDERED: IBUP-1022 PO (11:18)
== END 2023-04-09 12:50 | disposition home or self-care (01) | DRG 560 ==
LOC: M LDI 07:40 → M OBS 22:09
PROVIDERS: ADMIT Obstetrics & Gynecology; ATTEND Obstetrics & Gynecology
PROC: 10E0XZZ Delivery of Products of Conception, External Approach (ICD-10-PCS; principal; 2023-04-07)
PROC: 0HQ9XZZ Repair Perineum Skin, External Approach (ICD-10-PCS; 2023-04-07)
PROC: 3E033VJ Introduction of Other Hormone into Peripheral Vein, Percutaneous Approach (ICD-10-PCS; 2023-04-07)
DX: O48.0 Post-term pregnancy (principal); O69.2XX0 Labor and delivery complicated by other cord entanglement, with compression, not applicable or unspecified; Z37.0 Single live birth; Z91.041 Radiographic dye allergy status; Z88.5 Allergy status to narcotic agent; O70.0 First degree perineal laceration during delivery; Z3A.40 40 weeks gestation of pregnancy

== ENCOUNTER → 2024-03-23 | Outpatient (CLI) | payer OTHER ==
[~2024-03-23] MED LIST changes: +IBUP-1022 PO; +TUMS500C PO
[2024-03-23 11:49] LABS: BASO % 0.4 % (0.0-1.0); EOS # 0.2 10^3/uL (0.0-0.5); EOS % 2.1 % (0.0-3.0); HEMATOCRIT 42.1 % (36.0-47.0); HEMOGLOBIN 14.2 g/dl (12.0-15.5); LYMPH # 3.9 10^3/uL (1.5-5.0); LYMPH % 40.4 % (24.0-44.0); MEAN CORPUSCULAR HEMOGLOBIN 30.2 pg (27.0-33.0); MEAN CORPUSCULAR HGB CONC 33.7 g/dl (32.0-36.5); MEAN CORPUSCULAR VOLUME 89.6 fl (80.0-96.0); MONO # 0.5 10^3/uL (0.0-0.8); MONO % 5.3 % (2.0-8.0); NEUTROPHILS # 4.9 10^3/uL (1.5-8.5); NEUTROPHILS % 51.6 % (36.0-66.0); PLATELET COUNT, AUTOMATED 332 10^3/uL (150-450); WHITE BLOOD COUNT 9.5 10^3/uL (4.0-10.0)
[2024-03-23 12:13] LABS: ALBUMIN 3.7 G/DL (3.2-5.2); ALKALINE PHOSPHATASE 74 U/L (35-104); ALT/SGPT < 9 U/L (7.0-40); AST/SGOT 12 U/L (<34); BILIRUBIN,TOTAL 0.6 MG/DL (0.3-1.2); BLOOD UREA NITROGEN 12 MG/DL (9-23); CALCIUM LEVEL 8.9 MG/DL (8.5-10.1); CARBON DIOXIDE LEVEL 29 MMOL/L (20-31); CHLORIDE LEVEL 109 MMOL/L (98-107); CHOLESTEROL LEVEL 272 MG/DL (<200); CHOLESTEROL RISK RATIO 5.02 (<5); CREATININE FOR GFR 0.72 MG/DL (0.55-1.30); GLOMERULAR FILTRATION RATE > 60.0 (>60); GLUCOSE, FASTING 78 MG/DL (60-100); HDL CHOLESTEROL 54.1 MG/DL (>40); LDL CHOLESTEROL 197.1 MG/DL (<100); NON-HDL-C 217.9 MG/DL; POTASSIUM SERUM 4.5 MMOL/L (3.5-5.1); SODIUM LEVEL 140 MMOL/L (136-145); TOTAL PROTEIN 6.7 G/DL (5.7-8.2); TRIGLYCERIDES LEVEL 104 MG/DL (<150)
[2024-03-23 12:15] LABS: FREE T4 1.04 NG/DL (0.89-1.76); THYROID STIMULATING HORMONE 1.322 uIU/ML (0.55-4.78)
== END ==
LOC: M PLALAB 09:19
PROVIDERS: ATTEND Nurse Practitioner Family
DX: E78.5 Hyperlipidemia, unspecified (principal)

== ENCOUNTER → 2024-04-04 | Outpatient (REF) | payer OTHER, MEDICAID | LOC: M SFHCWAGY 17:42 | PROVIDERS: ATTEND Obstetrics & Gynecology | DX: Z12.4 Encounter for screening for malignant neoplasm of cervix (principal) ==

== ENCOUNTER → 2025-02-15 | Outpatient (CLI) | payer OTHER ==
[~2025-02-15] MED LIST changes: -IBUP-1022 PO; +IBUP-354 PO; +IBUP600T42 PO; +PRENTAB53 PO
[2025-02-15 11:14] LABS: PLATELET COUNT, AUTOMATED 305 10^3/uL (150-450)
[2025-02-15 11:30] LABS: ESTIMATED AVERAGE GLUCOSE 88.0 MG/DL (60-110)
[2025-02-15 11:41] LABS: ALT/SGPT 11 U/L (7.0-40); AST/SGOT 20 U/L (<34); CALCIUM LEVEL 8.8 MG/DL (8.5-10.1); CARBON DIOXIDE LEVEL 26 MMOL/L (20-31); CHLORIDE LEVEL 105 MMOL/L (98-107); CHOLESTEROL LEVEL 231 MG/DL (<200); CHOLESTEROL RISK RATIO 4.81 (<5); CREATININE FOR GFR 0.72 MG/DL (0.55-1.30); GLOMERULAR FILTRATION RATE > 90.0 (>60); LDL CHOLESTEROL 154.8 MG/DL (<100); NON-HDL-C 183.0 MG/DL; POTASSIUM SERUM 4.5 MMOL/L (3.5-5.1); SODIUM LEVEL 139 MMOL/L (136-145); TRIGLYCERIDES LEVEL 141 MG/DL (<150)
[2025-02-15 11:44] LABS: TOTAL T3 133.0 NG/DL (60.0-181.0)
[2025-02-15 11:45] LABS: THYROXINE (T4) 8.8 UG/DL (4.5-10.9)
== END ==
LOC: M LAB 09:35
PROVIDERS: ATTEND Physician Assistant
DX: E66.3 Overweight (principal)